=== PATIENT | female | born 1965 | race Caucasian/White ===

== ENCOUNTER 2017-03-01 08:33 | Inpatient (IN) | payer OTHER ==
[~2017-03-01] VITALS: Ht 160 cm; Wt 69.9 kg
[2017-03-01 08:33] VITALS: BP_SYST 146
--- NOTE | 2017-03-01 08:33 | NUR ---
BROUGHT BACK TO BED #8 VIA WHEELCHAIR, PLACED IN BED AND TRIAGED. REPORT GIVEN TO MARIO ALBERTO
--- NOTE | 2017-03-01 08:47 | NUR ---
PT AWOKE THIS AM WITH NAUSEA AND VOMITING, STATES IT CAME ON REALLY FAST AND SHE FEELS HORRIBLE. HYPERVENTILATING. ENCOURAGED PT TO CONTROL BREATHING AND REASSURED HER WE WILL HELP. SPOUSE AT BEDSIDE FOR SUPPORT. PT STATES SHE WAS DX WITH CLL ABOUT 4 YEARS AGO, NO TREATMENTS AT THIS TIME. PT STATES HER RECENT WBC IS 42.7.
[2017-03-01] MEDS ORDERED: NACL 0.9% 1,000 ML IV SCH (09:11)
[2017-03-01] MEDS ORDERED: LORazepam 2 MG/ML VIAL (FOR ER USE) IVP ONE (09:30)
[2017-03-01] MEDS ORDERED: ONDANSETRON HCL 4 MG/2 ML VIAL IVP ONE (09:30)
--- NOTE | 2017-03-01 09:30 | NUR ---
TAKEN TO RADIOLOGY VIA JOCELYNE
[2017-03-01 09:32] LABS: HEMOGLOBIN 15.3 g/dL (12.0-16.0); MEAN CORPUSCULAR HEMOGLOBIN 30 pg (27-31)
[2017-03-01 09:35] LABS: HEMATOCRIT 46.4 % (36-48); MEAN CORPUSCULAR HGB CONC 33 % (32-36); MEAN CORPUSCULAR VOLUME 91 fL (79.0-98.0); PLATELET COUNT (AUTO) 186 K/uL (130-430); RED BLOOD CELL COUNT(AUTO) 5.08 MIL/uL (4.2-6.2)
[2017-03-01 09:48] LABS: CALCIUM 9.6 mg/dL (8.4-11.0); CREATININE 0.84 mg/dL (0.55-1.30); POTASSIUM 4.3 mmol/L (3.5-5.1)
[2017-03-01 09:53] LABS: ALBUMIN 4.6 g/dL (3.4-4.8); TOTAL BILIRUBIN 0.9 mg/dL (0.0-1.0)
[2017-03-01 09:58] LABS: PROTHROMBIN TIME 9.9 SECS (9.5-12.5)
--- NOTE | 2017-03-01 10:14 | NUR ---
PT STATES THAT SHE FEELS MUCH BETTER, BREATHING IS MORE UNDER CONTROL. RESTING QUIETLY, NO VOMITING
[2017-03-01 10:32] LABS: BASOPHILS % (MANUAL) 0 % (0-2); EOSINOPHILS % (MANUAL) 1 % (0-7); LYMPHOCYTES % (MANUAL) 57 % (20-46); MONOCYTES % (MANUAL) 2 % (0-11)
--- NOTE | 2017-03-01 11:30 | NUR ---
PT SLEEPING EASILY AROUSABLE, NO C/O PAIN OR DISCOMFORT AT THIS TIME.
--- NOTE | 2017-03-01 13:50 | NUR ---
PT AMBULATED O RESTROOM W/O ASSIST. URINE SPECIMEN COLLECTED AND SENT. HCG(-)
[2017-03-01 14:15] LABS: BILIRUBIN,URINE NEGATIVE (NEGATIVE); BLOOD, URINE NEGATIVE (NEGATIVE); CLARITY/URINE CLEAR (CLEAR); COLOR,URINE YELLOW (YELLOW); GLUCOSE,URINE NEGATIVE (NEGATIVE); KETONES,URINE TRACE (NEGATIVE); LEUKOCYTE ESTERASE ,URINE NEGATIVE (NEGATIVE); NITRITE, URINE NEGATIVE (NEGATIVE); PROTEIN URINE NEGATIVE (NEGATIVE); UROBILINOGEN,URINE 0.2 (0.2-1.0)
[2017-03-01] MEDS ORDERED: ONDANSETRON HCL 4 MG/2 ML VIAL ONE (14:32)
--- NOTE | 2017-03-01 15:30 | NUR ---
Assumed care of patient. Received report from MARSHALL Ortiz. Patient resting in bed. Chest rise and fall noted.
--- NOTE | 2017-03-01 16:07 | NUR ---
Patient will be admitted to care of Dr. Pride. Admitted to Medical Surgical unit. Will go to room 127 B. Belongings list completed. Summary report printed. Report will be given at bedside. Transfer to [facility]. IV present no sign or symptom of infiltration.
[2017-03-01 16:25] VITALS: BP_SYST 134
--- NOTE | 2017-03-01 16:25 | NUR ---
Admission assessment Received Pt awake, alert, orientated x4. Pt breathing even and unlabored. Pt c/o nausea and diarrhea since 4AM 03/01/2017. Pt verbalized pain medication and antinausea medication that was administered in ER was effective. Pt denies N/V/D currently. Abd auscultated. Bowel sounds noted throughout all quadrant. Abd. soft and non distended. Lung sounds auscultated. Lung sounds clear throughout all lobes. Pt febrile temp 99.4, WBC 50.0 noted. Ice pack provided for cooling measures. Pt has a Hx chronic lymphocytic cancer. Pt is not receiving Tx for her CA due to financial concerns. IV access noted right AC 20G HL patent with blood return. No s/s of infiltration or inflammation noted. Assessment done
--- NOTE | 2017-03-01 17:15 | NUR ---
Dr. Lin at the bedside evaluating Pt. Currently awaiting new orders.
--- NOTE | 2017-03-01 18:33 | NUR ---
Closing notes Pt asleep. Chest rise and fall noted. Pt easily aroused by voice. Pt stated she does not need anything at the moment. Informed Pt to push the call light if Pt needs assistance with anything. Pt verbalized understanding. Call light within easy reach, bed at lowest position, will endorse all care to oncoming RN.
[2017-03-01 20:00] VITALS: BP_SYST 120
[2017-03-01] MEDS ORDERED: ACETAMINOPHEN 325 MG TABLET PO PRN (22:45)
[2017-03-01] MEDS ORDERED: NACL 0.9% 1,000 ML IV ONE (22:45)
[2017-03-01] MEDS ORDERED: METOPROLOL SUCCINATE 50 MG TAB.SR.24H (TOPROL XL) PO ONE (23:00)
[2017-03-02] VITALS: BP_SYST 128
[2017-03-02] MEDS ORDERED: MORPHINE 2 MG/ML INJ. SYRINGE IVP PRN
[2017-03-02 07:57] VITALS: BP_SYST 95
[2017-03-02 12:00] VITALS: BP_SYST 104
--- NOTE | 2017-03-02 13:09 | NUR ---
ROUNDS PT IN BED RESTING. PT STATES SHE AMBULATED TO BATHROOM. PT DENIES FEELING DIZZY WHILE SHE WAS WALKING. PT IS ON RA TOLERATING WELL. PT DENIES ANY NAUSEA OR VOMITING. NO DISTRESS NOTED. SAFETY MEASURES IN PLACE, BED TO LOWEST POSITION, SIDE RAILS UP X2, CALL LIGHT WITHIN REACH. WILL CONTINUE TO MONITOR.
--- NOTE | 2017-03-02 13:14 | NUR ---
Nutrition Update Francesco Scale 18 noted. Pt admitted for diarrhea unable to tolerate diet. Diet: NPO BMI: 27.5 kg/m2 RD to follow per nutrition care standards.
--- NOTE | 2017-03-02 13:25 | NUR ---
ROUNDS PT IN BED RESTING. PT DENIES ANY NAUSEA OR VOMITING. SAFETY MEASURES IN PLACE, CALL LIGHT WITHIN REACH.
--- NOTE | 2017-03-02 15:33 | NUR ---
MD ROUNDS DR VELÁSQUEZ ASSESSED PT. PER , HE WILL PUT ORDERS IN SYSTEM.
--- NOTE | 2017-03-02 15:37 | NUR ---
ROUNDS PT IN BED WITH FAMILY AT BEDSIDE. NO DISTRESS NOTED. PT DENIES ANY NAUSEA OR VOMITING. SAFETY MEASURES IN PLACE, CALL LIGHT WITHIN REACH.
[2017-03-02 15:53] VITALS: BP_SYST 110
--- NOTE | 2017-03-02 16:50 | NUR ---
ROUNDS PT IN BED RESTING. PT WAS INCONTINENT OF URINE. CHANGED PT. NO DISTRESS NOTED. SCD TO B/L LEGS. SAFETY MEASURES IN PLACE, CALL LIGHT WITHIN REACH. WILL CONTINUE TO MONITOR.
[2017-03-02] MEDS ORDERED: BISACODYL 5 MG TABLET.DR (DULCOLAX) PO ONE (17:00)
[2017-03-02] MEDS: D5NS 1,000 ML IV SCH ×2 (17:15→21:22)
[2017-03-02] MEDS ORDERED: GOLYTELY / COLYTE SOLUTION 4 LITERS PO ONE (18:00)
[2017-03-02] MEDS ORDERED: METO25TA3 PO (18:20)
--- NOTE | 2017-03-02 18:35 | NUR ---
ROUNDS PT IS STANDING IN ROOM, HAS STEADY GAIT. PT DENIES ANY NAUSEA OR VOMITING. NO DISTRESS NOTED. GAVE BOTTLE OF GOLYTELY TO PT. PT STATES UNDERSTANDING OF DRINKING GOLYTELY. INFORMED PT IF SHE WOULD LIKE BEDSIDE COMMODE. PT STATES SHE WILL USE BATHROOM FOR NOW. SAFETY MEASURES IN PLACE, CALL LIGHT WITHIN REACH. WILL CONTINUE TO MONITOR.
--- NOTE | 2017-03-02 19:20 | NUR ---
CLOSING NOTE GAVE REPORT TO STAMPER BLOCKER NURSE. PT WAS IN THE BATHROOM WHEN WE WENT IN THE ROOM. PT STATES TO HAVE A BOWEL MOVEMENT. PT STATES SHE DRANK 1 CUP OF GOLYTELY. PT ON RA TOLERATING WELL. NO DISTRESS NOTED. PT DENIES ANY NAUSEA OR VOMITING. SAFETY MEASURES IN PLACE, BED TO LOWEST POSITION, SIDE RAILS UP X2, CALL LIGHT WITHIN REACH. ENDORSED TO STAMPER BLOCKER.
[2017-03-02] MEDS: PIPERACILLIN/TAZO 3.375/DEX-IS 50 ML IV SCH (19:30)
--- NOTE | 2017-03-02 19:30 | NUR ---
INITIAL NOTE Received report from day nurse at the bedside. Pt resting in bed awake, breathing unlabored and even. No signs of distress, no needs at this time. IV access right hand 22#, infusing as ordered. Pt has left side restrictions. Fall and safety precautions in place, call light within reach. Bed in lowest position, brake on.
[2017-03-02 20:00] VITALS: BP_SYST 116
--- NOTE | 2017-03-02 20:00 | NUR ---
ROUNDS Pt resting in bed awake. Breathing unlabored and even. No signs of distress, no needs at this time. Fall and safety precautions in place. Bed in lowest position, brake on, call light within reach.
[2017-03-02] MEDS ORDERED: PIPERACILLIN/TAZOBACTAM 3.375 GM/VIAL (ZOSYN) IV ONE (20:40)
--- NOTE | 2017-03-02 22:01 | NUR ---
ROUNDS Pt resting in bed awake. Breathing unlabored and even. No signs of distress, no needs at this time. Fall and safety precautions in place. Bed in lowest position, brake on, call light within reach. Will continue to monitor.
[2017-03-03] VITALS: BP_SYST 124
[2017-03-03] MEDS: PIPERACILLIN/TAZO 3.375/DEX-IS 50 ML IV SCH ×2 (00:03→05:22)
--- NOTE | 2017-03-03 00:07 | NUR ---
ROUNDS Pt in restroom. Breathing unlabored and even. No signs of distress, no needs at this time. IV meds infusing as ordered. Fall and safety precautions in place. Bed in lowest position, brake on, call light within reach. Will continue to monitor.
--- NOTE | 2017-03-03 02:18 | NUR ---
rounds pt. resting in bed, no signs of acute distress. aware that she is to be npo past midnight. active bowel movements. golytly finished. no complaints of pain. will cont. to monitor for changes. safety and fall precautions in place, call light in reach.
--- NOTE | 2017-03-03 04:12 | NUR ---
ROUNDS PT. RESTING IN BED WITH EYES CLOSED. CHEST RISE AND FALL NOTED. NO S/S OF SOB OR DISTRESS. NO FACIAL GRIMACING INDICATING PAIN. BREATHING IS EVEN AND UNLABORED. IV PATENT AND INTACT.IV FLUIDS INFUSING WELL ORDERED. PT. REMAINS ON NPO STATUS FOR SCHEDULED PROCEDURE IN AM. SAFETY PRECAUTIONS IN PLACE. CALL LIGHT IN REACH.
--- NOTE | 2017-03-03 05:45 | NUR ---
CONSULT CONSULT CALLED FOR DR. PIRES I SPOKE WITH ABEBA CRUM ON CALLED THIS MORNING
--- NOTE | 2017-03-03 05:46 | NUR ---
CONSULT CONSULT CALLED FOR DR. MOORE I SPOKE WITH ABEBA MASON
[2017-03-03 06:29] LABS: MEAN CORPUSCULAR HEMOGLOBIN 31 pg (27-31); PLATELET COUNT (AUTO) 131 K/uL (130-430); RED CELL DISTRIBUTION WIDTH 11.9 % (9.0-15.0); WHITE BLOOD COUNT (AUTO) 24.6 K/uL (4.8-10.8)
--- NOTE | 2017-03-03 06:35 | NUR ---
CLOSING NOTE Pt resting in bed with eyes closed. Breathing unlabored and even. No signs of distress, no needs at this time. Fall and safety precautions in place throughout shift. All needs met throughout shift. Administered tap water enema as ordered. Stool is clear. Pt tolerated well. Bed in lowest position, brake on, call light within reach. Will endorse cares to day nurse.
[2017-03-03 07:45] LABS: PROTHROMBIN TIME 10.3 SECS (9.5-12.5)
--- NOTE | 2017-03-03 07:45 | NUR ---
OPENING NOTE: PATIENT LAYING IN BED RESTING. FAMILY AT BEDSIDE. BREATHING IS EVEN AND UNLABORED WITH NO SIGNS OF DISTRESS. PATIENT DENIES PAIN AND DISCOMFORT. PATIENT DENIES NAUSEA AND VOMITING. IV PATENT AND INTACT. BED IN LOW POSITION, WHEELS LOCKED, SIDE RAILS X3 AND CALL LIGHT WITHIN REACH. WILL CONTINUE TO MONITOR.
[2017-03-03 08:00] VITALS: BP_SYST 109
[2017-03-03 09:04] LABS: CALCIUM 8.7 mg/dL (8.4-11.0); CREATININE 0.69 mg/dL (0.55-1.30); POTASSIUM 3.6 mmol/L (3.5-5.1)
[2017-03-03 09:09] LABS: ALBUMIN 3.3 g/dL (3.4-4.8); TOTAL BILIRUBIN 0.8 mg/dL (0.0-1.0)
--- NOTE | 2017-03-03 10:06 | NUR ---
Rounding: Patient laying in bed resting.
[2017-03-03 11:49] LABS: HEMATOCRIT 35.3 % (36-48); HEMOGLOBIN 11.9 g/dL (12.0-16.0); MEAN CORPUSCULAR HGB CONC 34 % (32-36); MEAN CORPUSCULAR VOLUME 91 fL (79.0-98.0); RED BLOOD CELL COUNT(AUTO) 3.89 MIL/uL (4.2-6.2)
[2017-03-03 11:50] LABS: BAND % (MANUAL) 3 % (0-6); BASOPHILS % (MANUAL) 0 % (0-2); EOSINOPHILS % (MANUAL) 0 % (0-7); LYMPHOCYTES % (MANUAL) 28 % (20-46); MONOCYTES % (MANUAL) 14 % (0-11)
[2017-03-03 12:00] VITALS: BP_SYST 111
--- NOTE | 2017-03-03 12:06 | NUR ---
ROUNDING: PATIENT LAYING IN BED RESTING. BREATHING IS EVEN AND UNLABORED WITH NO SIGNS OF DISTRESS. PATIENT DENIES PAIN AND DISCOMFORT. MORNING MEDICATIONS TOLERATED WELL. BED IN LOW POSITION, WHEELS LOCKED AND CALL LIGHT WITHIN REACH. WILL CONTINUE TO MONITOR.
[2017-03-03] MEDS ORDERED: cefTRIAXone 1 GM in D5W 50 ML IV ONE (13:15)
--- NOTE | 2017-03-03 13:31 | NUR ---
Dietitian Recommendations * Consider advance diet if/when medically appropriate (clear liquid diet) LP, RD Please refer to Nutrition Assessment for details.
[2017-03-03] MEDS ORDERED: SIMETHICONE 40 MG/0.6 ML ML ONE (13:57)
[2017-03-03] MEDS: D5NS 1,000 ML IV SCH (14:22)
[2017-03-03] MEDS: metroNIDAZOLE 250 mg/NS 50 ML IV SCH ×2 (14:56→21:31)
--- NOTE | 2017-03-03 14:59 | NUR ---
PATIENT GOING TO GI LAB: PATIENT GOING TO GI LAB. PATIENT IN STABLE CONDITION. UNHOOKED FROM ALL IVS.
[2017-03-03] MEDS: MIDAZOLAM HCL 5 MG/5 ML VIAL ONE ×4 (15:17→15:29)
[2017-03-03] MEDS: fentaNYL CITRATE/PF 100 MCG/2 ML AMP ONE ×3 (15:17→15:29)
[2017-03-03] MEDS ORDERED: fentaNYL CITRATE/PF 100 MCG/2 ML AMP ONE (15:33)
[2017-03-03 16:00] VITALS: BP_SYST 129
[2017-03-03] MEDS ORDERED: HYDROCORTISONE ACETATE 1 SUPP (ANUSOL HC) RC PRN (16:00)
[2017-03-03] MEDS ORDERED: DIPHENHYDRAMINE INJ 50 MG/ML VIAL ONE (16:00)
--- NOTE | 2017-03-03 16:02 | NUR ---
ROUNDING: PATIENT IN GI LAB.
--- NOTE | 2017-03-03 18:08 | NUR ---
CLOSING NOTE: PATIENT LAYING IN BED RESTING. BREATHING IS EVEN AND UNLABORED WITH NO SIGNS OF DISTRESS. PATIENT DENIES NAUSEA AND VOMITING. PATIENT DENIES ABDOMINAL PAIN AND DISCOMFORT. IV PATENT AND INTACT. MEDICATIONS TOLERATED WELL. WILL ENDORSE PLAN OF CARE TO NOC, NURSE.
--- NOTE | 2017-03-03 19:55 | NUR ---
Opening note Pt AAOx4, VSS. No s/s of distress or discomfort noted. O2 saturation at 98% on room air. Pt denies any pain, N/V. IV fluids infusing on R. FA 22G clear, patent. Call light within reach. To monitor.
[2017-03-03 20:00] VITALS: BP_SYST 132
--- NOTE | 2017-03-03 21:00 | NUR ---
paged Pt requests to have diet advanced. Pt denies any N/V or abd pain. Pt on full liquid diet. Pt given more juice and jello and informed she will have small bowel f/u xray in am and will be NPO after midnight. Pt wants to eat before midnight. Paged Dr. Zhou. Awaiting callback.
[2017-03-04] MEDS: D5NS 1,000 ML IV SCH ×2 (00:13→10:06)
--- NOTE | 2017-03-04 01:00 | NUR ---
Rounds Pt asleep. No s/s of distress or discomfort noted. Pt NPO. Call light within reach. To monitor.
[2017-03-04 02:20] VITALS: BP_SYST 117
--- NOTE | 2017-03-04 04:00 | NUR ---
Rounds Pt asleep. No s/s distress or discomfort noted. IV fluids infusing as ordered R. FA 22G no infiltration noted. Call light within reach. To monitor.
[2017-03-04] MEDS: metroNIDAZOLE 250 mg/NS 50 ML IV SCH (05:35)
--- NOTE | 2017-03-04 06:00 | NUR ---
Closing note Pt asleep. No s/s distress noted. IV fluids infusing R. arm 22G no infiltration noted. Call light withing reach. To endorse to am nurse.
--- NOTE | 2017-03-04 07:45 | NUR ---
Patient left floor for XR small bowel follow through via wheelchair.
--- NOTE | 2017-03-04 08:45 | NUR ---
Patient returned to floor via wheelchair. Introduced self to patient. Vital signs taken. 0900 meds given. No complaints of pain or difficulty breathing. Patient extremely hungry, but informed she is still NPO until results are read and MD orders a diet. Patient verbalizes understanding. Extensions software support analyst, PAPER CAP MACHINE OPERATOR and rn charge written on white board. Patient verbalizes understanding. Call light in reach and safety precautions in order.
[2017-03-04 08:50] VITALS: BP_SYST 146
[2017-03-04] MEDS ORDERED: PANTOPRAZOLE SODIUM 40 MG TAB PO SCH (09:00)
[2017-03-04] MEDS ORDERED: cefTRIAXone 1 GM in D5W 50 ML IV SCH (09:00)
--- NOTE | 2017-03-04 10:20 | NUR ---
PATIENT RESTING: Patient resting quietly. No acute distress noted. Vital signs within normal range.
--- NOTE | 2017-03-04 11:49 | NUR ---
Dr Zhou paged To inform MD of XR small bowel follow through results. Awaiting call back.
--- NOTE | 2017-03-04 12:05 | NUR ---
Dr Zhou called back Read results to . ordered a soft diet for patient.
--- NOTE | 2017-03-04 12:35 | NUR ---
Lunch Patient ate a soft diet and tolerated well. Dr Pride states patient can be discharged as long as she tolerated diet. Patient verbalized understanding. States she can get picked up by 1430.
[2017-03-04 13:17] VITALS: BP_SYST 133
[2017-03-04 14:00] VITALS: BP_SYST 132
--- NOTE | 2017-03-04 15:20 | NUR ---
D/C Patient Patient given medication reconciliation form and D/C instructions. Exit Care provided. Patient verbalized understanding. MD discussed with patient the results and treatment provided. Ambulatory with steady gait for discharge to home. Patient in stable condition, ID band removed. IV catheter removed, intact and dressing applied, no active bleeding. Patient educated on pain management. All belongings sent with patient. Patient left facility via wheelchair with .
== END 2017-03-04 15:20 | disposition home or self-care (01) | DRG 392 ==
LOC: SED 08:33 → SMU 13:30
PROVIDERS: ADMIT Internal Medicine Hospice and Palliative Medicine; ATTEND Internal Medicine Hospice and Palliative Medicine
PROC: 0DB68ZX Excision of Stomach, Via Natural or Artificial Opening Endoscopic, Diagnostic (ICD-10-PCS; principal; 2017-03-03 12:00)
PROC: 0DBE8ZX Excision of Large Intestine, Via Natural or Artificial Opening Endoscopic, Diagnostic (ICD-10-PCS; 2017-03-03 12:00)
DX: K52.9 Noninfective gastroenteritis and colitis, unspecified (principal); C91.10 Chronic lymphocytic leukemia of B-cell type not having achieved remission; I10 Essential (primary) hypertension; K29.70 Gastritis, unspecified, without bleeding; K64.8 Other hemorrhoids; K64.4 Residual hemorrhoidal skin tags; Z90.710 Acquired absence of both cervix and uterus
CPT/HCPCS: 36415; 71045; 74250-TC; 80053; 81003; 83690-TC; 84484; 84703; 85007; 85027; 85610-TC; 85730-TC; 86710; 87040-TC; 87081; 87086; 88305; 88312; 88313; 93005; 96361; 96374; 96375; 99285; J0696; J1200; J2060; J2250; J2270; J2405; J2543; J3010; J3490; J7030; J7042; J7060

== ENCOUNTER 2017-10-24 18:46 | Emergency (ER) | payer OTHER ==
[~2017-10-24] VITALS: Ht 160 cm; Wt 67.6 kg
[~2017-10-24 18:46] MED LIST: METO25TA3 PO
[2017-10-24 18:59] VITALS: BP_SYST 130
[2017-10-24] MEDS ORDERED: IBUPROFEN 600 MG TABLET PO ONE (21:45)
[2017-10-24] MEDS ORDERED: DIPH-TET-PERTUS Vaccine 0.5 ML VIAL (ADACEL) I.M. ONE (21:45)
[2017-10-24] MEDS ORDERED: AMPICILLIN SODIUM/SULBACTAM NA 3 GM in NS 100 ML IV ONE (21:45)
[2017-10-24] MEDS ORDERED: AMPICILLIN SODIUM/SULBACTAM NA 3 GM VIAL ONE (22:28)
[2017-10-25] VITALS: BP_SYST 127
== END 2017-10-25 | disposition home or self-care (01) ==
LOC: SED 18:46
DX: S40.811A Abrasion of right upper arm, initial encounter (principal); E78.5 Hyperlipidemia, unspecified; R03.0 Elevated blood-pressure reading, without diagnosis of hypertension; Z88.5 Allergy status to narcotic agent; W55.01XA Bitten by cat, initial encounter; Y93.89 Activity, other specified; Y92.89 Other specified places as the place of occurrence of the external cause; Y99.8 Other external cause status
CPT/HCPCS: 73130; 90471; 90715; 96372; 99284; J0295

== ENCOUNTER 2020-01-15 15:45 | Emergency (ER) | payer OTHER ==
[~2020-01-15] VITALS: Ht 160 cm; Wt 77.1 kg
[2020-01-15 15:50] VITALS: BP_SYST 146
[2020-01-15] MEDS ORDERED: IBUPROFEN 800 MG TABLET PO ONE (16:15)
[2020-01-15 17:30] VITALS: BP_SYST 141
== END 2020-01-15 17:30 | disposition home or self-care (01) ==
LOC: SED 15:45
DX: S93.692A Other sprain of left foot, initial encounter (principal); R03.0 Elevated blood-pressure reading, without diagnosis of hypertension; E78.00 Pure hypercholesterolemia, unspecified; Z88.6 Allergy status to analgesic agent; W10.8XXA Fall (on) (from) other stairs and steps, initial encounter; Y93.01 Activity, walking, marching and hiking; Y92.89 Other specified places as the place of occurrence of the external cause; Y99.8 Other external cause status
CPT/HCPCS: 99284

== ENCOUNTER 2020-07-25 09:58 | Inpatient (IN) | payer OTHER ==
[~2020-07-25] VITALS: Ht 129.5 cm; Wt 77.1 kg
[2020-07-25 10:09] VITALS: BP_SYST 136
[2020-07-25 11:19] LABS: BASOPHILS # (AUTO) 0.1 K/uL (0.0-0.2); BASOPHILS % (AUTO) 0.3 % (0.0-2.0); HEMATOCRIT 40.8 % (36-48); HEMOGLOBIN 13.7 g/dL (12.0-16.0); LYMPHOCYTES # (AUTO) 40.5 K/uL (1.0-5.5); LYMPHOCYTES % (AUTO) 78.7 % (20.5-51.5); MEAN CORPUSCULAR HEMOGLOBIN 30 pg (27-31); MEAN CORPUSCULAR HGB CONC 34 % (32-36); MEAN CORPUSCULAR VOLUME 90 fL (79.0-98.0); NEUTROPHILS # (AUTO) 9.8 K/uL (1.8-7.7); PLATELET COUNT (AUTO) 182 K/uL (130-430); RED BLOOD CELL COUNT(AUTO) 4.53 MIL/uL (4.2-6.2); RED CELL DISTRIBUTION WIDTH 13.4 % (9.0-15.0)
[2020-07-25 11:22] LABS: WHITE BLOOD COUNT (AUTO) 51.5 K/uL (4.8-10.8)
[2020-07-25 11:33] LABS: ANION GAP 10 (5-15); CALCIUM 8.9 mg/dL (8.4-11.0); CHLORIDE 94 mmol/L (98-107); CREATININE 0.93 mg/dL (0.55-1.30); GLUCOSE 111 mg/dL (70-99); SODIUM SERUM 135 mmol/L (136-145); UREA NITROGEN, BLOOD 25 mg/dL (8-21)
[2020-07-25 11:36] LABS: PROTHROMBIN TIME 10.1 SECS (9.5-12.5)
[2020-07-25 11:38] LABS: GFR AFRICAN AMERICAN 81 mL/min (>90); POTASSIUM 2.7 mmol/L (3.5-5.1)
[2020-07-25 11:45] LABS: BILIRUBIN,URINE NEGATIVE (NEGATIVE); CLARITY/URINE CLEAR (CLEAR); COLOR,URINE YELLOW (YELLOW); GLUCOSE,URINE NEGATIVE (NEGATIVE); KETONES,URINE NEGATIVE (NEGATIVE); LEUKOCYTE ESTERASE ,URINE NEGATIVE (NEGATIVE); NITRITE, URINE NEGATIVE (NEGATIVE); PH,URINE 7.5 (5.0-8.0); PROTEIN URINE NEGATIVE (NEGATIVE); UROBILINOGEN,URINE 0.2 (0.2-1.0)
[2020-07-25] MEDS ORDERED: POTASSIUM CHLORIDE 20 MEQ/PKT PACKET PO ONE (11:45)
[2020-07-25] MEDS ORDERED: MAGNESIUM SULFATE 1 GM/2 ML VIAL IVP ONE (11:45)
[2020-07-25 11:48] LABS: ALANINE AMINOTRANSFERASE 27 U/L (12-78); ALBUMIN 4.2 g/dL (3.4-4.8); ASPARTATE AMINOTRANSFERASE 23 U/L (10-37); BILIRUBIN,DIRECT 0.2 mg/dL (0.0-0.3); LIPASE 255 U/L (73-393); THYROID STIMULATING HORMONE 1.84 uIu/mL (0.36-3.74)
[2020-07-25 11:51] LABS: BLOOD, URINE TRACE (NEGATIVE)
[2020-07-25] MEDS ORDERED: MAGNESIUM SULFATE/D5W 0 ML IV ONE (11:53)
[2020-07-25] MEDS ORDERED: MAGNESIUM SULFATE 50 ML IV ONE (11:59)
[2020-07-25 12:03] LABS: WBC,URINE 0-3 /HPF (0-3)
[2020-07-25 12:04] LABS: BACTERIA,URINE FEW /HPF (None Seen); MUCUS,URINE 1+ /LPF (None Seen)
[2020-07-25] MEDS ORDERED: FLUT16SP16 NS (14:10)
[2020-07-25] MEDS ORDERED: DILT60TA3 PO (14:10)
[2020-07-25] MEDS ORDERED: ESCI20TA PO (14:10)
[2020-07-25] MEDS ORDERED: CIPR500T5 PO (14:10)
[2020-07-25] MEDS ORDERED: TAMS-11 PO (14:10)
[2020-07-25] MEDS ORDERED: HCT25 PO (14:10)
[2020-07-25] MEDS ORDERED: P-EP1TBM2 PO (14:10)
[2020-07-25] MEDS ORDERED: DOCU-144 PO (14:10)
[2020-07-25] MEDS ORDERED: FAMO20TA8 PO (14:10)
[2020-07-25] MEDS ORDERED: ALBMDI INH (14:10)
[2020-07-25 14:48] VITALS: BP_SYST 146
[2020-07-25] MEDS: D5/0.45 NS 1,000 ML IV SCH (15:22)
[2020-07-25 16:30] VITALS: BP_SYST 131
[2020-07-25] MEDS ORDERED: ACETAMINOPHEN 325 MG TABLET PO PRN (18:45)
[2020-07-25] MEDS ORDERED: LORazepam 2 MG/ML VIAL IVP PRN (18:45)
[2020-07-25 19:45] VITALS: BP_SYST 130
[2020-07-25] MEDS: CIPROFLOXACIN HCL 500 MG TABLET PO SCH (20:24)
[2020-07-25] MEDS ORDERED: FAMOTIDINE 20 MG TABLET PO SCH (21:00)
[2020-07-26] MEDS: D5/0.45 NS 1,000 ML IV SCH ×3 (02:09→23:22)
[2020-07-26 05:56] VITALS: BP_SYST 134
[2020-07-26 06:57] LABS: BASOPHILS # (AUTO) 0.1 K/uL (0.0-0.2); BASOPHILS % (AUTO) 0.2 % (0.0-2.0); EOSINOPHILS % (AUTO) 0.1 % (0.0-4.0); HEMATOCRIT 38.8 % (36-48); HEMOGLOBIN 12.9 g/dL (12.0-16.0); LYMPHOCYTES % (AUTO) 80.2 % (20.5-51.5); MEAN CORPUSCULAR HEMOGLOBIN 31 pg (27-31); MEAN CORPUSCULAR HGB CONC 33 % (32-36); MEAN CORPUSCULAR VOLUME 91 fL (79.0-98.0); MONOCYTES # (AUTO) 1.2 K/uL (0.0-1.0); MONOCYTES % (AUTO) 2.7 % (1.7-9.3); NEUTROPHILS # (AUTO) 7.3 K/uL (1.8-7.7); NEUTROPHILS % (AUTO) 16.8 % (40.0-70.0); PLATELET COUNT (AUTO) 170 K/uL (130-430); RED BLOOD CELL COUNT(AUTO) 4.24 MIL/uL (4.2-6.2); RED CELL DISTRIBUTION WIDTH 13.2 % (9.0-15.0)
[2020-07-26 07:27] LABS: CALCIUM 8.2 mg/dL (8.4-11.0); CREATININE 0.83 mg/dL (0.55-1.30)
[2020-07-26] MEDS ORDERED: ALBUTEROL SULFATE 0.083% 2.5 MG/3 ML VIAL.NEB INH PRN (07:30)
[2020-07-26 07:50] VITALS: BP_SYST 137
[2020-07-26 07:54] LABS: WHITE BLOOD COUNT (AUTO) 43.6 K/uL (4.8-10.8)
[2020-07-26] MEDS: DILTIAZEM HCL 30 MG TABLET PO SCH ×2 (08:09→20:07)
[2020-07-26] MEDS: DOCUSATE SODIUM 100 MG CAPSULE PO SCH (08:10)
[2020-07-26] MEDS: FAMOTIDINE 20 MG TABLET PO SCH (08:10)
[2020-07-26] MEDS: P-EPHED SUL/LORATADINE TAB.SR.12H PO SCH (08:10)
[2020-07-26] MEDS: CITALOPRAM HYDROBROMIDE 20 MG TABLET PO SCH (08:10)
[2020-07-26] MEDS: TAMSULOSIN HCL 0.4 MG CAP PO SCH (08:10)
[2020-07-26] MEDS: CIPROFLOXACIN HCL 500 MG TABLET PO SCH ×2 (08:10→20:06)
[2020-07-26] MEDS: HYDROCHLOROTHIAZIDE 25 MG TABLET (HCTZ) PO SCH (08:11)
[2020-07-26] MEDS: METOPROLOL SUCCINATE 25 MG TAB.SR.24H (TOPROL XL) PO SCH (08:12)
[2020-07-26 08:25] LABS: POTASSIUM 2.9 mmol/L (3.5-5.1)
[2020-07-26] MEDS ORDERED: POTASSIUM CHLORIDE 40 MEQ in NS 250 ML IV ONE (08:45)
[2020-07-26] MEDS ORDERED: POTASSIUM CHLORIDE 20 MEQ TAB.PRT.SR PO ONE (08:45)
[2020-07-26] MEDS ORDERED: ESCITALOPRAM OXALATE 10 MG TABLET PO SCH (09:00)
[2020-07-26 09:03] VITALS: BP_SYST 134
[2020-07-26] MEDS: FLUTICASONE PROPIONATE 50 mCg/SPRAY 16 GM NS SCH (09:06)
[2020-07-26 12:55] VITALS: BP_SYST 138
[2020-07-26 15:32] LABS: CALCIUM 8.2 mg/dL (8.4-11.0); CREATININE 1.07 mg/dL (0.55-1.30); POTASSIUM 3.5 mmol/L (3.5-5.1)
[2020-07-26 16:00] VITALS: BP_SYST 135
[2020-07-26 20:00] VITALS: BP_SYST 117
[2020-07-27] VITALS: BP_SYST 102
[2020-07-27] MEDS: D5/0.45 NS 1,000 ML IV SCH (04:15)
[2020-07-27 06:54] LABS: BASOPHILS # (AUTO) 0.1 K/uL (0.0-0.2); BASOPHILS % (AUTO) 0.1 % (0.0-2.0); EOSINOPHILS # (AUTO) 0.1 K/uL (0.0-0.4); EOSINOPHILS % (AUTO) 0.1 % (0.0-4.0); HEMATOCRIT 37.4 % (36-48); HEMOGLOBIN 12.5 g/dL (12.0-16.0); LYMPHOCYTES # (AUTO) 42.4 K/uL (1.0-5.5); LYMPHOCYTES % (AUTO) 83.2 % (20.5-51.5); MEAN CORPUSCULAR HEMOGLOBIN 31 pg (27-31); MEAN CORPUSCULAR HGB CONC 34 % (32-36); MEAN CORPUSCULAR VOLUME 92 fL (79.0-98.0); MONOCYTES # (AUTO) 1.2 K/uL (0.0-1.0); MONOCYTES % (AUTO) 2.4 % (1.7-9.3); NEUTROPHILS # (AUTO) 7.2 K/uL (1.8-7.7); NEUTROPHILS % (AUTO) 14.2 % (40.0-70.0); PLATELET COUNT (AUTO) 173 K/uL (130-430); RED BLOOD CELL COUNT(AUTO) 4.06 MIL/uL (4.2-6.2); RED CELL DISTRIBUTION WIDTH 13.5 % (9.0-15.0)
[2020-07-27 07:30] VITALS: BP_SYST 119
[2020-07-27 07:42] LABS: ALBUMIN 3.3 g/dL (3.4-4.8); CALCIUM 8.3 mg/dL (8.4-11.0); CREATININE 0.88 mg/dL (0.55-1.30); POTASSIUM 3.4 mmol/L (3.5-5.1); TOTAL BILIRUBIN 0.7 mg/dL (0.0-1.0)
[2020-07-27 08:15] VITALS: BP_SYST 128
[2020-07-27] MEDS: DOCUSATE SODIUM 100 MG CAPSULE PO SCH (08:17)
[2020-07-27] MEDS: DILTIAZEM HCL 30 MG TABLET PO SCH (08:18)
[2020-07-27] MEDS: METOPROLOL SUCCINATE 25 MG TAB.SR.24H (TOPROL XL) PO SCH (08:18)
[2020-07-27] MEDS: CITALOPRAM HYDROBROMIDE 20 MG TABLET PO SCH (08:18)
[2020-07-27] MEDS: TAMSULOSIN HCL 0.4 MG CAP PO SCH (08:18)
[2020-07-27] MEDS: CIPROFLOXACIN HCL 500 MG TABLET PO SCH (08:19)
[2020-07-27] MEDS: FLUTICASONE PROPIONATE 50 mCg/SPRAY 16 GM NS SCH (08:19)
[2020-07-27] MEDS: FAMOTIDINE 20 MG TABLET PO SCH (08:19)
[2020-07-27] MEDS: P-EPHED SUL/LORATADINE TAB.SR.12H PO SCH (08:19)
[2020-07-27] MEDS ORDERED: POTASSIUM CHLORIDE 20 MEQ TAB.PRT.SR PO ONE (08:30)
[2020-07-27 11:29] VITALS: BP_SYST 119
[2020-07-27] MEDS: HYDROCHLOROTHIAZIDE 25 MG TABLET (HCTZ) PO SCH (11:37)
== END 2020-07-27 13:39 | disposition home or self-care (01) | DRG 312 ==
LOC: SED 09:58 → STU 12:05
PROVIDERS: ADMIT Preventive Medicine Preventive Medicine/Occupational Environmental Medicine; ATTEND Preventive Medicine Preventive Medicine/Occupational Environmental Medicine
DX: R55 Syncope and collapse (principal); E87.1 Hypo-osmolality and hyponatremia; E83.52 Hypercalcemia; E87.6 Hypokalemia; E78.00 Pure hypercholesterolemia, unspecified; I10 Essential (primary) hypertension; R73.9 Hyperglycemia, unspecified; Z20.822 Contact with and (suspected) exposure to COVID-19; R00.2 Palpitations; R94.31 Abnormal electrocardiogram [ECG] [EKG]; Z90.710 Acquired absence of both cervix and uterus; Z79.899 Other long term (current) drug therapy; Z88.5 Allergy status to narcotic agent
CPT/HCPCS: 36415; 71045; 76770; 80048; 80053; 80076; 81000; 83690; 83735; 83880; 84100; 84439; 84443; 84484; 85025; 85379; 85610-TC; 93005; 93306; 93880; 96374; 97116-GP; 99285; G0378; J3475; J3480; J7050

== ENCOUNTER 2022-04-01 17:11 | Emergency (ER) | payer OTHER ==
[~2022-04-01] VITALS: Ht 160 cm; Wt 81.6 kg
[~2022-04-01 17:11] MED LIST changes: +ALBMDI INH; +CIPR500T5 PO; +DESL1TBM PO; +DILT60TA3 PO; +DOCU-144 PO; +ESCI20TA PO; +FAMO20TA8 PO; +FLUT16SP16 NS; +HCT25 PO; +TAMS-11 PO
[2022-04-01 17:12] VITALS: BP_SYST 152
[2022-04-01] MEDS: MECLIZINE HCL 25 MG TABLET (ANITVERT) PO ONE (20:25)
[2022-04-01 20:26] VITALS: BP_SYST 151
[2022-04-01 20:27] LABS: HEMATOCRIT 41.8 % (36-48); HEMOGLOBIN 13.9 g/dL (12.0-16.0); MEAN CORPUSCULAR HEMOGLOBIN 30 pg (27-31); MEAN CORPUSCULAR HGB CONC 33 % (32-36); MEAN CORPUSCULAR VOLUME 91 fL (79.0-98.0); PLATELET COUNT (AUTO) 200 K/uL (130-430); RED BLOOD CELL COUNT(AUTO) 4.59 MIL/uL (4.2-6.2); RED CELL DISTRIBUTION WIDTH 13.6 % (9.0-15.0)
[2022-04-01 20:31] LABS: CALCIUM 9.4 mg/dL (8.4-11.0); CREATININE 0.92 mg/dL (0.55-1.30)
[2022-04-01 20:35] LABS: ALBUMIN 4.3 g/dL (3.4-4.8); TOTAL BILIRUBIN 0.7 mg/dL (0.0-1.0)
[2022-04-01] MEDS ORDERED: cefTRIAXone 2 GM VIAL ONE (21:14)
[2022-04-01 21:40] LABS: ATYPICAL LYMPHOCYTES % 10 % (0-0); BAND % (MANUAL) 0 % (0-6); BASOPHILS % (MANUAL) 0 % (0-2); EOSINOPHILS % (MANUAL) 1 % (0-7); LYMPHOCYTES % (MANUAL) 64 % (20-46); MONOCYTES % (MANUAL) 2 % (0-11)
[2022-04-01] MEDS: ONDANSETRON HCL 4 MG/2 ML VIAL IVP ONE (21:56)
[2022-04-01] MEDS ORDERED: ONDA-8 TL (22:09)
[2022-04-01] MEDS ORDERED: MECL-160 PO (22:09)
== END 2022-04-01 22:26 | disposition home or self-care (01) ==
LOC: SED 17:11
DX: H81.10 Benign paroxysmal vertigo, unspecified ear (principal); Z88.5 Allergy status to narcotic agent; Z79.899 Other long term (current) drug therapy; Z20.822 Contact with and (suspected) exposure to COVID-19
CPT/HCPCS: 99285; 96365; 70450; 71045; 96375; 87426; 85027; 80053; 85007; 87040; 36415; 93005; 76376; 83605; 87804 ×2; J8597; J0696; J2405; J7060